=== PATIENT | male | born 1985 | race African-American/Black ===

== ENCOUNTER 2023-03-26 15:31 | Inpatient (IN) | payer OTHER ==
[2023-03-26 16:29] VITALS: BMI 29.3
[2023-03-26] MEDS ORDERED: TRIMETHOBENZAMIDE HCL 200MG/2ML INJ IM ONE (16:41)
[2023-03-26] MEDS ORDERED: BENZONATATE 200 MG CAPSULE PO PRN (17:07)
[2023-03-26] MEDS ORDERED: ACETAMINOPHEN 325 MG TABLET (FP) PO PRN (17:07)
[2023-03-26] MEDS ORDERED: guaiFENesin 600 MG TABLET.ER (FP) PO PRN (17:07)
[2023-03-26] MEDS ORDERED: MAGNESIUM HYDROX 2400MG/30ML ORAL SUSPENSION 30 ML CUP PO PRN (17:07)
[2023-03-26] MEDS ORDERED: DICYCLOMINE HCL 10 MG CAPSULE PO PRN (17:07)
[2023-03-26] MEDS ORDERED: BENZOCAINE/MENTHOL (CHLORASEPTIC ) LOZENGE MM PRN (17:07)
[2023-03-26] MEDS ORDERED: ONDANSETRON *ODT* 4 MG TABLET SL PRN (17:07)
[2023-03-26] MEDS ORDERED: P-EPHED 60MG/TRIPROLIDI 2.5MG TABLET PO PRN (17:07)
[2023-03-26] MEDS ORDERED: POLYETHYLENE GLYCOL (HEALTHYLAX) 3350 17 GM PACKET PO PRN (17:07)
[2023-03-26] MEDS ORDERED: LOPERAMIDE HCL 2 MG CAPSULE PO PRN (17:07)
[2023-03-26] MEDS ORDERED: MAG HYDROX/AL HYDROX/SIMETH 30 ML UNIT-DOSE CUP PO PRN (17:07)
[2023-03-26] MEDS ORDERED: chlordiazePOXIDE HCL 25 MG CAPSULE PO PRN (17:09)
[2023-03-26] MEDS ORDERED: chlordiazePOXIDE HCL 25 MG CAPSULE ONE (17:36)
[2023-03-26] MEDS: chlordiazePOXIDE HCL 25 MG CAPSULE PO SCH ×2 (17:39→22:27)
[2023-03-26] MEDS ORDERED: levETIRAcetam 500 MG TABLET (FP) PO ONE (17:41)
[2023-03-26] MEDS: levETIRAcetam 500 MG TABLET (FP) PO SCH ×2 (17:42→22:28)
[2023-03-26] MEDS: MELATONIN 5 MG TABLETS PO SCH (22:26)
[2023-03-26] MEDS: THIAMINE HCL 100 MG TABLET (FP) PO SCH (22:26)
[2023-03-27] MEDS: chlordiazePOXIDE HCL 25 MG CAPSULE PO SCH ×2 (05:46→10:09)
[2023-03-27] MEDS: levETIRAcetam 500 MG TABLET (FP) PO SCH ×2 (10:08→22:10)
[2023-03-27] MEDS: PRENATAL VITAMINS W/ FOLIC ACID TABLET (FP) PO SCH (10:09)
[2023-03-27 10:39] LABS: HEMATOCRIT 41.1 % (35.4-49); HEMOGLOBIN 13.8 GM/dL (11.7-16.9); MCH 33.9 pg (25.7-33.7); MCHC 33.7 g/dl (32.0-35.9); MEAN CELL VOLUME 100.7 fl (80-96); MEAN PLT VOLUME 9.9 fl (7.5-11.1); PLATELET COUNT 133 10^3/uL (134-434); RBC 4.08 M/mm3 (4.00-5.60); RDW 19.1 % (11.9-15.9); WHITE BLOOD COUNT 2.9 K/mm3 (4.0-10.0)
[2023-03-27 10:46] LABS: POTASSIUM 3.2 mmol/L (3.5-5.1)
[2023-03-27 10:54] LABS: BLOOD UREA NITROGEN 5.8 mg/dL (7-18); CALCIUM 9.6 mg/dL (8.5-10.1)
[2023-03-27 10:58] LABS: BILIRUBIN,TOTAL 1.6 mg/dL (0.2-1)
[2023-03-27 10:59] LABS: TOT PROT 7.2 g/dl (6.4-8.2)
[2023-03-27] MEDS ORDERED: POTASSIUM CHLORIDE ORAL LIQUID 20 MEQ/15 ML PO ONE ×3 (12:41→20:30)
[2023-03-27] MEDS ORDERED: LORazepam 1 MG TABLET PO PRN (12:43)
[2023-03-27] MEDS: LORazepam 2 MG TABLET PO SCH ×2 (17:28→22:10)
[2023-03-27] MEDS: APIXABAN 5 MG TABLET PO SCH (22:10)
[2023-03-27] MEDS: THIAMINE HCL 100 MG TABLET (FP) PO SCH (22:10)
[2023-03-27] MEDS: MELATONIN 5 MG TABLETS PO SCH (22:11)
[2023-03-28] MEDS ORDERED: chlordiazePOXIDE HCL 25 MG CAPSULE PO SCH (05:00)
[2023-03-28] MEDS: LORazepam 1 MG TABLET PO SCH ×4 (05:10→22:08)
[2023-03-28] MEDS: levETIRAcetam 500 MG TABLET (FP) PO SCH ×2 (10:14→22:08)
[2023-03-28] MEDS: APIXABAN 5 MG TABLET PO SCH ×2 (10:14→22:08)
[2023-03-28] MEDS: PRENATAL VITAMINS W/ FOLIC ACID TABLET (FP) PO SCH (10:20)
[2023-03-28] MEDS: POTASSIUM CHLORIDE ORAL LIQUID 20 MEQ/15 ML PO SCH ×2 (13:52→20:07)
[2023-03-28] MEDS: MELATONIN 5 MG TABLETS PO SCH (22:08)
[2023-03-28] MEDS: THIAMINE HCL 100 MG TABLET (FP) PO SCH (22:08)
[2023-03-29] MEDS ORDERED: LORazepam 0.5 MG TABLET PO PRN
[2023-03-29] MEDS ORDERED: chlordiazePOXIDE HCL 10 MG CAPSULE PO PRN
[2023-03-29] MEDS ORDERED: chlordiazePOXIDE HCL 10 MG CAPSULE PO SCH (05:00)
[2023-03-29] MEDS: LORazepam 0.5 MG TABLET PO SCH ×4 (05:21→22:03)
[2023-03-29] MEDS: hydrOXYzine PAMOATE 25 MG CAPSULE (FP) PO PRN (05:22)
[2023-03-29] MEDS: PRENATAL VITAMINS W/ FOLIC ACID TABLET (FP) PO SCH (10:54)
[2023-03-29] MEDS: levETIRAcetam 500 MG TABLET (FP) PO SCH ×2 (10:54→22:03)
[2023-03-29] MEDS: APIXABAN 5 MG TABLET PO SCH ×2 (10:54→22:03)
[2023-03-29] MEDS: MELATONIN 5 MG TABLETS PO SCH (22:03)
[2023-03-29] MEDS: THIAMINE HCL 100 MG TABLET (FP) PO SCH (22:03)
[2023-03-30] MEDS ORDERED: chlordiazePOXIDE HCL 10 MG CAPSULE PO SCH (05:00)
[2023-03-30] MEDS ORDERED: LORazepam 0.5 MG TABLET PO ONE (05:00)
[2023-03-30] MEDS: APIXABAN 5 MG TABLET PO SCH ×2 (10:06→22:12)
[2023-03-30] MEDS: PRENATAL VITAMINS W/ FOLIC ACID TABLET (FP) PO SCH (10:06)
[2023-03-30] MEDS: THIAMINE HCL 100 MG TABLET (FP) PO SCH (22:12)
[2023-03-30] MEDS: MELATONIN 5 MG TABLETS PO SCH (22:13)
[2023-03-30] MEDS: hydrOXYzine PAMOATE 25 MG CAPSULE (FP) PO PRN (22:14)
[2023-03-31] MEDS ORDERED: chlordiazePOXIDE HCL 10 MG CAPSULE PO ONE (05:00)
[2023-03-31 05:33] VITALS: RESP 18
[2023-03-31 09:27] VITALS: BP 144/88; PULSE 76; TEMP 98.3
[2023-03-31] MEDS: PRENATAL VITAMINS W/ FOLIC ACID TABLET (FP) PO SCH (09:33)
[2023-03-31] MEDS: APIXABAN 5 MG TABLET PO SCH (09:34)
== END 2023-03-31 09:52 | disposition home or self-care (01) | DRG 775 ==
LOC: YASAS 15:31 → Y6N 17:13
PROVIDERS: ADMIT Allergy & Immunology; ATTEND Surgery
PROC: HZ2ZZZZ Detoxification Services for Substance Abuse Treatment (ICD-10-PCS; principal; 2023-03-26)
DX: F10.230 Alcohol dependence with withdrawal, uncomplicated (principal); E87.6 Hypokalemia; H11.31 Conjunctival hemorrhage, right eye; R74.8 Abnormal levels of other serum enzymes; Z86.711 Personal history of pulmonary embolism; Z79.01 Long term (current) use of anticoagulants; Z86.69 Personal history of other diseases of the nervous system and sense organs
CPT/HCPCS: 36415; 80053; 84132; 85027; 86780; 87635; Q0162

== ENCOUNTER 2023-05-11 11:31 | Inpatient (IN) | payer OTHER ==
[2023-05-11] MEDS ORDERED: IBUPROFEN 600 MG TABLET (FP) PO PRN (12:06)
[2023-05-11] MEDS ORDERED: LOPERAMIDE HCL 2 MG CAPSULE PO PRN (12:06)
[2023-05-11] MEDS ORDERED: MAGNESIUM HYDROX 2400MG/30ML ORAL SUSPENSION 30 ML CUP PO PRN (12:06)
[2023-05-11] MEDS ORDERED: AMMONIUM LACTATE 12% LOTION 225 GM BOTTLE TP PRN (12:06)
[2023-05-11] MEDS ORDERED: BENZONATATE 200 MG CAPSULE PO PRN (12:06)
[2023-05-11] MEDS ORDERED: MAG HYDROX/AL HYDROX/SIMETH 30 ML UNIT-DOSE CUP PO PRN (12:06)
[2023-05-11] MEDS ORDERED: ACETAMINOPHEN 325 MG TABLET (FP) PO PRN (12:06)
[2023-05-11] MEDS ORDERED: BENZOCAINE/MENTHOL (CHLORASEPTIC ) LOZENGE MM PRN (12:06)
[2023-05-11] MEDS ORDERED: IBUPROFEN 400 MG TABLET (FP) PO PRN (12:06)
[2023-05-11] MEDS ORDERED: NALOXONE HCL 0.4 MG/ML VIAL IVPUSH PRN (12:06)
[2023-05-11] MEDS ORDERED: guaiFENesin 600 MG TABLET.ER (FP) PO PRN (12:06)
[2023-05-11] MEDS ORDERED: POLYETHYLENE GLYCOL (HEALTHYLAX) 3350 17 GM PACKET PO PRN (12:06)
[2023-05-11] MEDS ORDERED: NALOXONE HCL (KLOXXADO) 8 MG SPRAY NS PRN (12:06)
[2023-05-11] MEDS ORDERED: COLLOIDAL OATMEAL 1 BAR EACH TP PRN (12:06)
[2023-05-11] MEDS: THIAMINE HCL 100 MG TABLET (FP) PO SCH (21:23)
[2023-05-11] MEDS: MELATONIN 5 MG TABLETS PO SCH (21:24)
[2023-05-11] MEDS: APIXABAN 5 MG TABLET PO SCH (21:24)
[2023-05-12] MEDS: PRENATAL VITAMINS W/ FOLIC ACID TABLET (FP) PO SCH (10:16)
[2023-05-12] MEDS: levETIRAcetam XR 750 MG TAB PO SCH (10:16)
[2023-05-12] MEDS: APIXABAN 5 MG TABLET PO SCH ×2 (10:16→21:36)
[2023-05-12 10:39] LABS: BASO % 0.7 % (0-2.0); EOS % 3.6 % (0-4.5); HEMOGLOBIN 13.7 GM/dL (11.7-16.9); LYMPH % 27.8 % (8-40); MCH 34.6 pg (25.7-33.7); MCHC 33.4 g/dl (32.0-35.9); MEAN CELL VOLUME 103.8 fl (80-96); MONO % 18.2 % (3.8-10.2); NEUT % 49.7 % (42.8-82.8); PLATELET COUNT 167 10^3/uL (134-434); RBC 3.95 M/mm3 (4.00-5.60); RDW 15.9 % (11.9-15.9); WHITE BLOOD COUNT 3.4 K/mm3 (4.0-10.0)
[2023-05-12 12:56] LABS: POTASSIUM 3.9 mmol/L (3.5-5.1)
[2023-05-12 13:14] LABS: BLOOD UREA NITROGEN 5.9 mg/dL (7-18); CALCIUM 9.3 mg/dL (8.5-10.1); CREATININE 1.1 mg/dL (0.55-1.3); TOT PROT 7.3 g/dl (6.4-8.2)
[2023-05-12] MEDS: THIAMINE HCL 100 MG TABLET (FP) PO SCH (21:36)
[2023-05-12] MEDS: MELATONIN 5 MG TABLETS PO SCH (21:36)
[2023-05-12] MEDS: METHOCARBAMOL 500 MG TABLET PO PRN (21:37)
[2023-05-12] MEDS: hydrOXYzine PAMOATE 25 MG CAPSULE (FP) PO PRN (21:37)
[2023-05-13] MEDS: APIXABAN 5 MG TABLET PO SCH ×2 (10:04→21:27)
[2023-05-13] MEDS: levETIRAcetam XR 750 MG TAB PO SCH (10:04)
[2023-05-13] MEDS: PRENATAL VITAMINS W/ FOLIC ACID TABLET (FP) PO SCH (10:05)
[2023-05-13] MEDS ORDERED: PANTOPRAZOLE 20 MG TABLET PO PRN (11:16)
[2023-05-13] MEDS: LACTULOSE 20 GM/30 ML UDC (FOR ORAL USE ONLY) PO SCH ×2 (13:19→21:27)
[2023-05-13] MEDS: THIAMINE HCL 100 MG TABLET (FP) PO SCH (21:27)
[2023-05-13] MEDS: METHOCARBAMOL 500 MG TABLET PO PRN (21:27)
[2023-05-13] MEDS: MELATONIN 5 MG TABLETS PO SCH (21:27)
[2023-05-14] MEDS: LACTULOSE 20 GM/30 ML UDC (FOR ORAL USE ONLY) PO SCH ×3 (06:27→21:30)
[2023-05-14] MEDS: APIXABAN 5 MG TABLET PO SCH ×2 (09:46→21:31)
[2023-05-14] MEDS: PRENATAL VITAMINS W/ FOLIC ACID TABLET (FP) PO SCH (09:46)
[2023-05-14] MEDS: levETIRAcetam XR 750 MG TAB PO SCH (09:46)
[2023-05-14] MEDS: FERROUS SO4 300 MG/5 ML ORAL SOLN UNIT DOSE CUPS PO SCH (09:46)
[2023-05-14 11:17] LABS: INR 1.15 (0.83-1.09); PROTHROMBIN TIME (PATIENT) 13.3 SEC (9.7-13.0)
[2023-05-14 11:58] LABS: MAGNESIUM 2.2 mg/dL (1.8-2.4)
[2023-05-14 12:16] LABS: HIV INTERPRETATION NEGATIVE (NEGATIVE)
[2023-05-14] MEDS: THIAMINE HCL 100 MG TABLET (FP) PO SCH (21:29)
[2023-05-14] MEDS: MELATONIN 5 MG TABLETS PO SCH (21:29)
[2023-05-14] MEDS: hydrOXYzine PAMOATE 25 MG CAPSULE (FP) PO PRN (21:30)
[2023-05-14] MEDS: METHOCARBAMOL 500 MG TABLET PO PRN (21:30)
[2023-05-15] MEDS: LACTULOSE 20 GM/30 ML UDC (FOR ORAL USE ONLY) PO SCH ×3 (06:36→21:33)
[2023-05-15] MEDS: APIXABAN 5 MG TABLET PO SCH ×2 (10:05→21:34)
[2023-05-15] MEDS: PRENATAL VITAMINS W/ FOLIC ACID TABLET (FP) PO SCH (10:05)
[2023-05-15] MEDS: levETIRAcetam XR 750 MG TAB PO SCH (10:06)
[2023-05-15] MEDS: FERROUS SO4 300 MG/5 ML ORAL SOLN UNIT DOSE CUPS PO SCH (10:06)
[2023-05-15] MEDS: MELATONIN 5 MG TABLETS PO SCH (21:33)
[2023-05-15] MEDS: THIAMINE HCL 100 MG TABLET (FP) PO SCH (21:33)
[2023-05-15] MEDS: METHOCARBAMOL 500 MG TABLET PO PRN (21:34)
[2023-05-16] MEDS: LACTULOSE 20 GM/30 ML UDC (FOR ORAL USE ONLY) PO SCH ×3 (06:18→21:27)
[2023-05-16] MEDS: PRENATAL VITAMINS W/ FOLIC ACID TABLET (FP) PO SCH (09:36)
[2023-05-16] MEDS: APIXABAN 5 MG TABLET PO SCH ×2 (09:37→21:27)
[2023-05-16] MEDS: levETIRAcetam XR 750 MG TAB PO SCH (09:37)
[2023-05-16] MEDS: FERROUS SO4 300 MG/5 ML ORAL SOLN UNIT DOSE CUPS PO SCH (10:22)
[2023-05-16] MEDS: MELATONIN 5 MG TABLETS PO SCH (21:26)
[2023-05-16] MEDS: THIAMINE HCL 100 MG TABLET (FP) PO SCH (21:26)
[2023-05-16] MEDS: METHOCARBAMOL 500 MG TABLET PO PRN (21:27)
[2023-05-17] MEDS: LACTULOSE 20 GM/30 ML UDC (FOR ORAL USE ONLY) PO SCH ×3 (06:16→21:40)
[2023-05-17] MEDS: APIXABAN 5 MG TABLET PO SCH ×2 (10:02→21:40)
[2023-05-17] MEDS: FERROUS SO4 300 MG/5 ML ORAL SOLN UNIT DOSE CUPS PO SCH (10:02)
[2023-05-17] MEDS: levETIRAcetam XR 750 MG TAB PO SCH (10:02)
[2023-05-17] MEDS: PRENATAL VITAMINS W/ FOLIC ACID TABLET (FP) PO SCH (10:03)
[2023-05-17] MEDS: MELATONIN 5 MG TABLETS PO SCH (21:40)
[2023-05-17] MEDS: hydrOXYzine PAMOATE 25 MG CAPSULE (FP) PO PRN (21:40)
[2023-05-17] MEDS: THIAMINE HCL 100 MG TABLET (FP) PO SCH (21:40)
[2023-05-18] MEDS: LACTULOSE 20 GM/30 ML UDC (FOR ORAL USE ONLY) PO SCH ×3 (06:19→21:46)
[2023-05-18] MEDS: levETIRAcetam XR 750 MG TAB PO SCH (09:35)
[2023-05-18] MEDS: FERROUS SO4 300 MG/5 ML ORAL SOLN UNIT DOSE CUPS PO SCH (09:35)
[2023-05-18] MEDS: APIXABAN 5 MG TABLET PO SCH ×2 (09:35→21:46)
[2023-05-18] MEDS: PRENATAL VITAMINS W/ FOLIC ACID TABLET (FP) PO SCH (09:35)
[2023-05-18] MEDS: THIAMINE HCL 100 MG TABLET (FP) PO SCH (21:46)
[2023-05-18] MEDS: MELATONIN 5 MG TABLETS PO SCH (21:47)
[2023-05-19] MEDS: LACTULOSE 20 GM/30 ML UDC (FOR ORAL USE ONLY) PO SCH ×3 (06:13→21:52)
[2023-05-19] MEDS: PRENATAL VITAMINS W/ FOLIC ACID TABLET (FP) PO SCH (09:56)
[2023-05-19] MEDS: FERROUS SO4 300 MG/5 ML ORAL SOLN UNIT DOSE CUPS PO SCH (09:56)
[2023-05-19] MEDS: APIXABAN 5 MG TABLET PO SCH ×2 (09:56→21:52)
[2023-05-19] MEDS: levETIRAcetam XR 750 MG TAB PO SCH (09:56)
[2023-05-19] MEDS: THIAMINE HCL 100 MG TABLET (FP) PO SCH (21:52)
[2023-05-19] MEDS: MELATONIN 5 MG TABLETS PO SCH (21:52)
[2023-05-20] MEDS: LACTULOSE 20 GM/30 ML UDC (FOR ORAL USE ONLY) PO SCH ×2 (06:25→14:04)
[2023-05-20] MEDS: APIXABAN 5 MG TABLET PO SCH ×2 (09:34→21:15)
[2023-05-20] MEDS: FERROUS SO4 300 MG/5 ML ORAL SOLN UNIT DOSE CUPS PO SCH (09:34)
[2023-05-20] MEDS: PRENATAL VITAMINS W/ FOLIC ACID TABLET (FP) PO SCH (09:35)
[2023-05-20] MEDS: levETIRAcetam XR 750 MG TAB PO SCH (09:35)
[2023-05-20 10:48] LABS: POTASSIUM 4.4 mmol/L (3.5-5.1)
[2023-05-20 10:52] LABS: CALCIUM 9.2 mg/dL (8.5-10.1)
[2023-05-20 10:53] LABS: ALBUMIN 3.9 g/dl (3.4-5.0); BLOOD UREA NITROGEN 6.8 mg/dL (7-18)
[2023-05-20 10:57] LABS: TOT PROT 7.4 g/dl (6.4-8.2)
[2023-05-20 10:58] LABS: BILIRUBIN,TOTAL 0.5 mg/dL (0.2-1)
[2023-05-20] MEDS: THIAMINE HCL 100 MG TABLET (FP) PO SCH (21:15)
[2023-05-20] MEDS: MELATONIN 5 MG TABLETS PO SCH (21:15)
[2023-05-21] MEDS: FERROUS SO4 300 MG/5 ML ORAL SOLN UNIT DOSE CUPS PO SCH (10:13)
[2023-05-21] MEDS: APIXABAN 5 MG TABLET PO SCH ×2 (10:13→21:17)
[2023-05-21] MEDS: levETIRAcetam XR 750 MG TAB PO SCH (10:13)
[2023-05-21] MEDS: PRENATAL VITAMINS W/ FOLIC ACID TABLET (FP) PO SCH (10:14)
[2023-05-21] MEDS: THIAMINE HCL 100 MG TABLET (FP) PO SCH (21:18)
[2023-05-21] MEDS: MELATONIN 5 MG TABLETS PO SCH (21:18)
[2023-05-22] MEDS: APIXABAN 5 MG TABLET PO SCH ×2 (09:26→21:33)
[2023-05-22] MEDS: levETIRAcetam XR 750 MG TAB PO SCH (09:27)
[2023-05-22] MEDS: FERROUS SO4 300 MG/5 ML ORAL SOLN UNIT DOSE CUPS PO SCH (09:27)
[2023-05-22] MEDS: PRENATAL VITAMINS W/ FOLIC ACID TABLET (FP) PO SCH (09:27)
[2023-05-22] MEDS: MELATONIN 5 MG TABLETS PO SCH (21:32)
[2023-05-22] MEDS: THIAMINE HCL 100 MG TABLET (FP) PO SCH (21:33)
[2023-05-23] MEDS: PRENATAL VITAMINS W/ FOLIC ACID TABLET (FP) PO SCH (09:52)
[2023-05-23] MEDS: levETIRAcetam XR 750 MG TAB PO SCH (09:52)
[2023-05-23] MEDS: FERROUS SO4 300 MG/5 ML ORAL SOLN UNIT DOSE CUPS PO SCH (09:52)
[2023-05-23] MEDS: APIXABAN 5 MG TABLET PO SCH ×2 (09:52→21:39)
[2023-05-23] MEDS: MELATONIN 5 MG TABLETS PO SCH (21:39)
[2023-05-23] MEDS: THIAMINE HCL 100 MG TABLET (FP) PO SCH (21:39)
[2023-05-24] MEDS: APIXABAN 5 MG TABLET PO SCH ×2 (09:36→21:37)
[2023-05-24] MEDS: PRENATAL VITAMINS W/ FOLIC ACID TABLET (FP) PO SCH (09:36)
[2023-05-24] MEDS: FERROUS SO4 300 MG/5 ML ORAL SOLN UNIT DOSE CUPS PO SCH (09:37)
[2023-05-24] MEDS: levETIRAcetam XR 750 MG TAB PO SCH (09:37)
[2023-05-24] MEDS: MELATONIN 5 MG TABLETS PO SCH (21:37)
[2023-05-24] MEDS: THIAMINE HCL 100 MG TABLET (FP) PO SCH (21:37)
[2023-05-25] MEDS: hydrOXYzine PAMOATE 25 MG CAPSULE (FP) PO PRN (06:14)
[2023-05-25] MEDS: FERROUS SO4 300 MG/5 ML ORAL SOLN UNIT DOSE CUPS PO SCH (10:16)
[2023-05-25] MEDS: APIXABAN 5 MG TABLET PO SCH ×2 (10:16→21:14)
[2023-05-25] MEDS: levETIRAcetam XR 750 MG TAB PO SCH (10:17)
[2023-05-25] MEDS: PRENATAL VITAMINS W/ FOLIC ACID TABLET (FP) PO SCH (10:17)
[2023-05-25] MEDS: MELATONIN 5 MG TABLETS PO SCH (21:14)
[2023-05-25] MEDS: THIAMINE HCL 100 MG TABLET (FP) PO SCH (21:14)
[2023-05-26] MEDS: APIXABAN 5 MG TABLET PO SCH ×2 (09:44→22:18)
[2023-05-26] MEDS: FERROUS SO4 300 MG/5 ML ORAL SOLN UNIT DOSE CUPS PO SCH (09:44)
[2023-05-26] MEDS: levETIRAcetam XR 750 MG TAB PO SCH (09:45)
[2023-05-26] MEDS: PRENATAL VITAMINS W/ FOLIC ACID TABLET (FP) PO SCH (09:45)
[2023-05-26] MEDS: MELATONIN 5 MG TABLETS PO SCH (22:18)
[2023-05-26] MEDS: THIAMINE HCL 100 MG TABLET (FP) PO SCH (22:18)
[2023-05-27] MEDS: PRENATAL VITAMINS W/ FOLIC ACID TABLET (FP) PO SCH (09:36)
[2023-05-27] MEDS: FERROUS SO4 300 MG/5 ML ORAL SOLN UNIT DOSE CUPS PO SCH (09:36)
[2023-05-27] MEDS: APIXABAN 5 MG TABLET PO SCH ×2 (09:36→21:24)
[2023-05-27] MEDS: levETIRAcetam XR 750 MG TAB PO SCH (09:37)
[2023-05-27] MEDS: THIAMINE HCL 100 MG TABLET (FP) PO SCH (21:23)
[2023-05-27] MEDS: MELATONIN 5 MG TABLETS PO SCH (21:24)
[2023-05-28] MEDS: FERROUS SO4 300 MG/5 ML ORAL SOLN UNIT DOSE CUPS PO SCH (09:37)
[2023-05-28] MEDS: PRENATAL VITAMINS W/ FOLIC ACID TABLET (FP) PO SCH (09:37)
[2023-05-28] MEDS: levETIRAcetam XR 750 MG TAB PO SCH (09:37)
[2023-05-28] MEDS: APIXABAN 5 MG TABLET PO SCH ×2 (09:37→21:27)
[2023-05-28] MEDS: THIAMINE HCL 100 MG TABLET (FP) PO SCH (21:27)
[2023-05-28] MEDS: MELATONIN 5 MG TABLETS PO SCH (21:27)
[2023-05-29] MEDS: levETIRAcetam XR 750 MG TAB PO SCH (10:10)
[2023-05-29] MEDS: PRENATAL VITAMINS W/ FOLIC ACID TABLET (FP) PO SCH (10:10)
[2023-05-29] MEDS: APIXABAN 5 MG TABLET PO SCH ×2 (10:10→21:15)
[2023-05-29] MEDS: FERROUS SO4 300 MG/5 ML ORAL SOLN UNIT DOSE CUPS PO SCH (10:11)
[2023-05-29] MEDS: MELATONIN 5 MG TABLETS PO SCH (21:15)
[2023-05-29] MEDS: THIAMINE HCL 100 MG TABLET (FP) PO SCH (21:15)
[2023-05-30] MEDS: PRENATAL VITAMINS W/ FOLIC ACID TABLET (FP) PO SCH (09:38)
[2023-05-30] MEDS: APIXABAN 5 MG TABLET PO SCH ×2 (09:38→21:12)
[2023-05-30] MEDS: levETIRAcetam XR 750 MG TAB PO SCH (09:38)
[2023-05-30] MEDS: FERROUS SO4 300 MG/5 ML ORAL SOLN UNIT DOSE CUPS PO SCH (09:38)
[2023-05-30] MEDS: MELATONIN 5 MG TABLETS PO SCH (21:12)
[2023-05-30] MEDS: THIAMINE HCL 100 MG TABLET (FP) PO SCH (21:12)
[2023-05-31] MEDS: FERROUS SO4 300 MG/5 ML ORAL SOLN UNIT DOSE CUPS PO SCH (10:01)
[2023-05-31] MEDS: PRENATAL VITAMINS W/ FOLIC ACID TABLET (FP) PO SCH (10:01)
[2023-05-31] MEDS: APIXABAN 5 MG TABLET PO SCH ×2 (10:01→21:16)
[2023-05-31] MEDS: levETIRAcetam XR 750 MG TAB PO SCH (10:01)
[2023-05-31] MEDS: hydrOXYzine PAMOATE 25 MG CAPSULE (FP) PO PRN (21:16)
[2023-05-31] MEDS: THIAMINE HCL 100 MG TABLET (FP) PO SCH (21:16)
[2023-05-31] MEDS: MELATONIN 5 MG TABLETS PO SCH (21:16)
[2023-06-01] MEDS: APIXABAN 5 MG TABLET PO SCH ×2 (09:55→21:15)
[2023-06-01] MEDS: levETIRAcetam XR 750 MG TAB PO SCH (09:55)
[2023-06-01] MEDS: PRENATAL VITAMINS W/ FOLIC ACID TABLET (FP) PO SCH (09:56)
[2023-06-01] MEDS: FERROUS SO4 300 MG/5 ML ORAL SOLN UNIT DOSE CUPS PO SCH (11:03)
[2023-06-01] MEDS: THIAMINE HCL 100 MG TABLET (FP) PO SCH (21:15)
[2023-06-01] MEDS: MELATONIN 5 MG TABLETS PO SCH (21:15)
[2023-06-02] MEDS: APIXABAN 5 MG TABLET PO SCH ×2 (09:44→21:20)
[2023-06-02] MEDS: FERROUS SO4 300 MG/5 ML ORAL SOLN UNIT DOSE CUPS PO SCH (09:45)
[2023-06-02] MEDS: PRENATAL VITAMINS W/ FOLIC ACID TABLET (FP) PO SCH (09:45)
[2023-06-02] MEDS: levETIRAcetam XR 750 MG TAB PO SCH (09:45)
[2023-06-02] MEDS: THIAMINE HCL 100 MG TABLET (FP) PO SCH (21:20)
[2023-06-02] MEDS: MELATONIN 5 MG TABLETS PO SCH (21:20)
[2023-06-03] MEDS: PRENATAL VITAMINS W/ FOLIC ACID TABLET (FP) PO SCH (10:00)
[2023-06-03] MEDS: APIXABAN 5 MG TABLET PO SCH ×2 (10:00→21:16)
[2023-06-03] MEDS: FERROUS SO4 300 MG/5 ML ORAL SOLN UNIT DOSE CUPS PO SCH (10:00)
[2023-06-03] MEDS: levETIRAcetam XR 750 MG TAB PO SCH (10:01)
[2023-06-03] MEDS: THIAMINE HCL 100 MG TABLET (FP) PO SCH (21:16)
[2023-06-03] MEDS: MELATONIN 5 MG TABLETS PO SCH (21:16)
[2023-06-03] MEDS: hydrOXYzine PAMOATE 25 MG CAPSULE (FP) PO PRN (21:17)
[2023-06-04] MEDS: levETIRAcetam XR 750 MG TAB PO SCH (09:56)
[2023-06-04] MEDS: PRENATAL VITAMINS W/ FOLIC ACID TABLET (FP) PO SCH (09:56)
[2023-06-04] MEDS: FERROUS SO4 300 MG/5 ML ORAL SOLN UNIT DOSE CUPS PO SCH (09:56)
[2023-06-04] MEDS: APIXABAN 5 MG TABLET PO SCH ×2 (09:56→21:12)
[2023-06-04] MEDS ORDERED: LISINOPRIL 5 MG TABLET PO ONE (09:58)
[2023-06-04] MEDS: hydrOXYzine PAMOATE 25 MG CAPSULE (FP) PO PRN (21:12)
[2023-06-04] MEDS: THIAMINE HCL 100 MG TABLET (FP) PO SCH (21:13)
[2023-06-04] MEDS: MELATONIN 5 MG TABLETS PO SCH (21:13)
[2023-06-05] MEDS: APIXABAN 5 MG TABLET PO SCH ×2 (09:57→21:10)
[2023-06-05] MEDS: PRENATAL VITAMINS W/ FOLIC ACID TABLET (FP) PO SCH (09:58)
[2023-06-05] MEDS: LISINOPRIL 5 MG TABLET PO SCH (09:58)
[2023-06-05] MEDS: levETIRAcetam XR 750 MG TAB PO SCH (09:58)
[2023-06-05] MEDS: FERROUS SO4 300 MG/5 ML ORAL SOLN UNIT DOSE CUPS PO SCH (09:58)
[2023-06-05] MEDS: THIAMINE HCL 100 MG TABLET (FP) PO SCH (21:10)
[2023-06-05] MEDS: MELATONIN 5 MG TABLETS PO SCH (21:10)
[2023-06-06] MEDS: FERROUS SO4 300 MG/5 ML ORAL SOLN UNIT DOSE CUPS PO SCH (10:37)
[2023-06-06] MEDS: APIXABAN 5 MG TABLET PO SCH ×2 (10:37→21:22)
[2023-06-06] MEDS: LISINOPRIL 5 MG TABLET PO SCH (10:38)
[2023-06-06] MEDS: levETIRAcetam XR 750 MG TAB PO SCH (10:39)
[2023-06-06] MEDS: PRENATAL VITAMINS W/ FOLIC ACID TABLET (FP) PO SCH (10:40)
[2023-06-06] MEDS: MELATONIN 5 MG TABLETS PO SCH (21:22)
[2023-06-06] MEDS: THIAMINE HCL 100 MG TABLET (FP) PO SCH (21:22)
[2023-06-07 06:38] VITALS: BP 143/98; PULSE 79; RESP 16; TEMP 98
[2023-06-07] MEDS: LISINOPRIL 5 MG TABLET PO SCH (09:25)
[2023-06-07] MEDS: APIXABAN 5 MG TABLET PO SCH (09:25)
[2023-06-07] MEDS: FERROUS SO4 300 MG/5 ML ORAL SOLN UNIT DOSE CUPS PO SCH (09:26)
[2023-06-07] MEDS: PRENATAL VITAMINS W/ FOLIC ACID TABLET (FP) PO SCH (09:26)
[2023-06-07] MEDS: levETIRAcetam XR 750 MG TAB PO SCH (09:26)
== END 2023-06-07 09:30 | disposition home or self-care (01) | DRG 772 ==
LOC: YASAS 11:31 → Y3E 11:32
PROVIDERS: ADMIT Allergy & Immunology; ATTEND Psychiatry & Neurology Pain Medicine
PROC: HZ42ZZZ Group Counseling for Substance Abuse Treatment, Cognitive-Behavioral (ICD-10-PCS; principal; 2023-05-11)
DX: F10.20 Alcohol dependence, uncomplicated (principal); E72.20 Disorder of urea cycle metabolism, unspecified; I10 Essential (primary) hypertension; D68.59 Other primary thrombophilia; R79.89 Other specified abnormal findings of blood chemistry; D72.819 Decreased white blood cell count, unspecified; R71.8 Other abnormality of red blood cells; Z86.711 Personal history of pulmonary embolism; Z79.01 Long term (current) use of anticoagulants; Z86.69 Personal history of other diseases of the nervous system and sense organs
CPT/HCPCS: 36415; 80053; 80177; 82140; 82272; 82607; 82652; 82746; 83036; 83735; 84439; 84443; 84481; 85025; 85610; 86803; 87389

== ENCOUNTER 2024-01-12 13:28 | Inpatient (IN) | payer OTHER ==
[2024-01-12 13:55] VITALS: BMI 32.5
[2024-01-12] MEDS ORDERED: MAGNESIUM HYDROX 2400MG/30ML ORAL SUSPENSION 30 ML CUP PO PRN (14:02)
[2024-01-12] MEDS ORDERED: LOPERAMIDE HCL 2 MG CAPSULE PO PRN (14:02)
[2024-01-12] MEDS ORDERED: P-EPHED 60MG/TRIPROLIDI 2.5MG TABLET PO PRN (14:02)
[2024-01-12] MEDS ORDERED: chlordiazePOXIDE HCL 25 MG CAPSULE PO PRN (14:02)
[2024-01-12] MEDS ORDERED: ONDANSETRON *ODT* 4 MG TABLET SL PRN (14:02)
[2024-01-12] MEDS ORDERED: MAG HYDROX/AL HYDROX/SIMETH 30 ML UNIT-DOSE CUP PO PRN (14:02)
[2024-01-12] MEDS ORDERED: POLYETHYLENE GLYCOL (HEALTHYLAX) 3350 17 GM PACKET PO PRN (14:02)
[2024-01-12] MEDS ORDERED: hydrOXYzine PAMOATE 25 MG CAPSULE (FP) PO PRN (14:02)
[2024-01-12] MEDS ORDERED: BENZONATATE 200 MG CAPSULE PO PRN (14:02)
[2024-01-12] MEDS ORDERED: DICYCLOMINE HCL 10 MG CAPSULE PO PRN (14:02)
[2024-01-12] MEDS ORDERED: guaiFENesin 600 MG TABLET.ER (FP) PO PRN (14:02)
[2024-01-12] MEDS ORDERED: ACETAMINOPHEN 325 MG TABLET (FP) PO PRN (14:02)
[2024-01-12] MEDS ORDERED: BENZOCAINE/MENTHOL (CHLORASEPTIC ) LOZENGE MM PRN (14:02)
[2024-01-12] MEDS ORDERED: levETIRAcetam 500 MG TABLET (FP) PO ONE (14:26)
[2024-01-12] MEDS: LISINOPRIL 5 MG TABLET PO SCH (14:51)
[2024-01-12] MEDS: levETIRAcetam XR 750 MG TAB PO SCH (14:51)
[2024-01-12] MEDS: chlordiazePOXIDE HCL 25 MG CAPSULE PO SCH (17:17)
[2024-01-12] MEDS: MELATONIN 5 MG TABLETS PO SCH (22:28)
[2024-01-12] MEDS: APIXABAN 5 MG TABLET PO SCH (22:29)
[2024-01-12] MEDS: BACITRACIN 0.9 GM PACKET TP SCH (22:29)
[2024-01-12] MEDS: THIAMINE 100 MG TABLET PO SCH (22:29)
[2024-01-13] MEDS: METHOCARBAMOL 500 MG TABLET PO PRN (05:42)
[2024-01-13] MEDS: PRENATAL VITAMINS W/ FOLIC ACID TABLET (FP) PO SCH (10:47)
[2024-01-14] MEDS: chlordiazePOXIDE HCL 25 MG CAPSULE PO SCH (05:45)
[2024-01-14 11:45] LABS: MCH 31.9 pg (25.7-33.7); MCHC 33.4 g/dl (32.0-35.9); MEAN CELL VOLUME 95.6 fl (80-96); PLATELET COUNT 207 10^3/uL (134-434); RBC 4.08 M/mm3 (4.00-5.60); RDW 13.6 % (11.9-15.9); WHITE BLOOD COUNT 3.9 K/mm3 (4.0-10.0)
[2024-01-14 11:46] LABS: POTASSIUM 3.8 mmol/L (3.5-5.1)
[2024-01-14 11:51] LABS: ALBUMIN 3.6 g/dl (3.4-5.0); BLOOD UREA NITROGEN 8.7 mg/dL (7-18); CALCIUM 8.9 mg/dL (8.5-10.1)
[2024-01-14 11:52] LABS: CREATININE 0.9 mg/dL (0.55-1.3)
[2024-01-14 11:54] LABS: BILIRUBIN,TOTAL 0.8 mg/dL (0.2-1); TOT PROT 6.9 g/dl (6.4-8.2)
[2024-01-15] MEDS ORDERED: chlordiazePOXIDE HCL 10 MG CAPSULE PO PRN
[2024-01-15] MEDS: chlordiazePOXIDE HCL 10 MG CAPSULE PO SCH (05:59)
[2024-01-16] MEDS: chlordiazePOXIDE HCL 10 MG CAPSULE PO SCH (05:49)
[2024-01-17] MEDS: chlordiazePOXIDE HCL 10 MG CAPSULE PO ONE (05:48)
[2024-01-17 07:51] VITALS: PULSE 75
[2024-01-17 09:13] VITALS: BP 109/74; RESP 19; TEMP 97.7
== END 2024-01-17 12:06 | disposition home or self-care (01) | DRG 775 ==
LOC: YASAS 13:28 → Y6N 14:24
PROVIDERS: ADMIT Allergy & Immunology; ATTEND Surgery
PROC: HZ2ZZZZ Detoxification Services for Substance Abuse Treatment (ICD-10-PCS; principal; 2024-01-12)
DX: F10.230 Alcohol dependence with withdrawal, uncomplicated (principal); I10 Essential (primary) hypertension; R56.9 Unspecified convulsions; R74.8 Abnormal levels of other serum enzymes; Z86.711 Personal history of pulmonary embolism; Z79.01 Long term (current) use of anticoagulants; Z86.69 Personal history of other diseases of the nervous system and sense organs
CPT/HCPCS: 36415; 80053; 85027; 86780; 93005; 93010

== ENCOUNTER 2024-01-22 22:46 | Inpatient (IN) | payer OTHER ==
[2024-01-23 00:22] VITALS: BMI 33.0
[2024-01-23] MEDS ORDERED: MAGNESIUM HYDROX 2400MG/30ML ORAL SUSPENSION 30 ML CUP PO PRN (03:57)
[2024-01-23] MEDS ORDERED: BENZONATATE 200 MG CAPSULE PO PRN (03:57)
[2024-01-23] MEDS ORDERED: LOPERAMIDE HCL 2 MG CAPSULE PO PRN (03:57)
[2024-01-23] MEDS ORDERED: MAG HYDROX/AL HYDROX/SIMETH 30 ML UNIT-DOSE CUP PO PRN (03:57)
[2024-01-23] MEDS ORDERED: IBUPROFEN 600 MG TABLET (FP) PO PRN (03:57)
[2024-01-23] MEDS ORDERED: IBUPROFEN 400 MG TABLET (FP) PO PRN (03:57)
[2024-01-23] MEDS ORDERED: guaiFENesin 600 MG TABLET.ER (FP) PO PRN (03:57)
[2024-01-23] MEDS ORDERED: NALOXONE HCL (KLOXXADO) 8 MG SPRAY NS PRN (03:57)
[2024-01-23] MEDS ORDERED: POLYETHYLENE GLYCOL (HEALTHYLAX) 3350 17 GM PACKET PO PRN (03:57)
[2024-01-23] MEDS ORDERED: hydrOXYzine PAMOATE 25 MG CAPSULE (FP) PO PRN (03:57)
[2024-01-23] MEDS ORDERED: NALOXONE HCL 0.4 MG/ML VIAL IM PRN (03:57)
[2024-01-23] MEDS: PRENATAL VITAMINS W/ FOLIC ACID TABLET (FP) PO SCH (10:43)
[2024-01-23] MEDS: APIXABAN 5 MG TABLET PO SCH (10:43)
[2024-01-23] MEDS: LISINOPRIL 5 MG TABLET PO SCH (10:43)
[2024-01-23] MEDS: levETIRAcetam XR 750 MG TAB PO SCH (10:55)
[2024-01-23] MEDS: MELATONIN 5 MG TABLETS PO SCH (21:24)
[2024-01-23] MEDS: THIAMINE 100 MG TABLET PO SCH (21:25)
[2024-01-24 09:20] LABS: HEMATOCRIT 37.4 % (35.4-49); HEMOGLOBIN 12.6 GM/dL (11.7-16.9); MCH 32.6 pg (25.7-33.7); MCHC 33.7 g/dl (32.0-35.9); MEAN CELL VOLUME 96.8 fl (80-96); MEAN PLT VOLUME 10.3 fl (7.5-11.1); PLATELET COUNT 285 10^3/uL (134-434); RBC 3.86 M/mm3 (4.00-5.60); RDW 14.1 % (11.9-15.9)
[2024-01-25 11:41] LABS: CHLORIDE 103 mmol/L (98-107); SODIUM 133 mmol/L (136-145)
[2024-01-25 11:46] LABS: CALCIUM 9.2 mg/dL (8.5-10.1)
[2024-01-25 11:47] LABS: ALBUMIN 3.4 g/dl (3.4-5.0); BLOOD UREA NITROGEN 6.6 mg/dL (7-18); CO2 26 mmol/L (21-32); GLUCOSE,RANDOM 91 mg/dL (74-106)
[2024-01-25 11:49] LABS: CREATININE 0.9 mg/dL (0.55-1.3); SGPT/ALT 51 U/L (13-61)
[2024-01-25 11:50] LABS: SGOT/AST 27 U/L (15-37)
[2024-01-25 11:51] LABS: BILIRUBIN,TOTAL 0.7 mg/dL (0.2-1)
[2024-01-25 11:52] LABS: ALK PHOS 105 U/L (45-117)
[2024-01-25 11:55] LABS: ANION GAP 4 mmol/L (4-13); POTASSIUM 6.4 mmol/L (3.5-5.1)
[2024-02-04] MEDS: BENZOCAINE/MENTHOL (CHLORASEPTIC ) LOZENGE MM PRN (12:05)
[2024-02-06] MEDS: ACETAMINOPHEN 325 MG TABLET (FP) PO PRN (06:19)
[2024-02-06] MEDS: AMOXICILLIN 500 MG CAPSULE (FP) PO ONE (13:20)
[2024-02-06] MEDS: AMOXICILLIN 500 MG CAPSULE (FP) PO SCH (21:02)
[2024-02-08 06:37] VITALS: TEMP 97.1
[2024-02-08 10:47] VITALS: BP 100/72; PULSE 102; RESP 15
== END 2024-02-08 09:35 | disposition home or self-care (01) | DRG 772 ==
LOC: YASAS 22:46 → Y3NR 01-23 04:01 → Y3E 01-24 10:59
PROVIDERS: ADMIT Allergy & Immunology; ATTEND Psychiatry & Neurology Pain Medicine
PROC: HZ42ZZZ Group Counseling for Substance Abuse Treatment, Cognitive-Behavioral (ICD-10-PCS; principal; 2024-01-23)
DX: F10.20 Alcohol dependence, uncomplicated (principal); I10 Essential (primary) hypertension; K21.9 Gastro-esophageal reflux disease without esophagitis; R56.9 Unspecified convulsions; Z86.711 Personal history of pulmonary embolism; Z79.01 Long term (current) use of anticoagulants; Z56.0 Unemployment, unspecified; Z59.00 Homelessness unspecified
CPT/HCPCS: 36415; 80053; 80305; 80307; 84132; 85027; 86780; 87070; 87811; 93005; 93010

== ENCOUNTER 2024-03-23 00:46 | Inpatient (IN) | payer OTHER ==
[2024-03-23 01:28] VITALS: BMI 29.7
[2024-03-23] MEDS ORDERED: LOPERAMIDE HCL 2 MG CAPSULE PO PRN (02:00)
[2024-03-23] MEDS ORDERED: MAG HYDROX/AL HYDROX/SIMETH 30 ML UNIT-DOSE CUP PO PRN (02:00)
[2024-03-23] MEDS ORDERED: POLYETHYLENE GLYCOL (HEALTHYLAX) 3350 17 GM PACKET PO PRN (02:00)
[2024-03-23] MEDS ORDERED: ACETAMINOPHEN 325 MG TABLET (FP) PO PRN (02:00)
[2024-03-23] MEDS ORDERED: IBUPROFEN 600 MG TABLET (FP) PO PRN (02:00)
[2024-03-23] MEDS ORDERED: NALOXONE HCL 0.4 MG/ML VIAL IM PRN (02:00)
[2024-03-23] MEDS ORDERED: BENZONATATE 200 MG CAPSULE PO PRN (02:00)
[2024-03-23] MEDS ORDERED: NALOXONE (NARCAN) HCL 4 MG/0.1 ML SPRAY NS PRN (02:00)
[2024-03-23] MEDS ORDERED: BISMUTH SUBSALICYLATE 524 MG/30 ML PO PRN (02:00)
[2024-03-23] MEDS ORDERED: IBUPROFEN 400 MG TABLET (FP) PO PRN (02:00)
[2024-03-23] MEDS ORDERED: DICYCLOMINE HCL 10 MG CAPSULE PO PRN (02:00)
[2024-03-23] MEDS ORDERED: BENZOCAINE/MENTHOL (CHLORASEPTIC ) LOZENGE MM PRN (02:00)
[2024-03-23] MEDS ORDERED: MAGNESIUM HYDROX 2400MG/30ML ORAL SUSPENSION 30 ML CUP PO PRN (02:00)
[2024-03-23] MEDS ORDERED: guaiFENesin 600 MG TABLET.ER (FP) PO PRN (02:00)
[2024-03-23] MEDS: hydrOXYzine PAMOATE 25 MG CAPSULE (FP) PO PRN (02:16)
[2024-03-23] MEDS ORDERED: chlordiazePOXIDE HCL 25 MG CAPSULE PO PRN (10:00)
[2024-03-23] MEDS: PRENATAL VITAMINS W/ FOLIC ACID TABLET (FP) PO SCH (10:19)
[2024-03-23] MEDS: chlordiazePOXIDE HCL 25 MG CAPSULE PO SCH (10:31)
[2024-03-23] MEDS: PANTOPRAZOLE 40 MG TABLET PO SCH (12:35)
[2024-03-23] MEDS: APIXABAN 5 MG TABLET PO SCH (12:35)
[2024-03-23] MEDS: LISINOPRIL 10 MG TABLET PO SCH (12:35)
[2024-03-23] MEDS: levETIRAcetam XR 750 MG TAB PO SCH (14:07)
[2024-03-23] MEDS: ONDANSETRON *ODT* 4 MG TABLET SL PRN (17:30)
[2024-03-23] MEDS: MELATONIN 5 MG TABLETS PO SCH (22:03)
[2024-03-23] MEDS: THIAMINE 100 MG TABLET PO SCH (22:03)
[2024-03-23] MEDS: METHOCARBAMOL 500 MG TABLET PO PRN (22:05)
[2024-03-25] MEDS: chlordiazePOXIDE HCL 25 MG CAPSULE PO SCH (05:38)
[2024-03-26] MEDS ORDERED: chlordiazePOXIDE HCL 10 MG CAPSULE PO PRN
[2024-03-26] MEDS: chlordiazePOXIDE HCL 10 MG CAPSULE PO SCH (05:35)
[2024-03-27] MEDS: chlordiazePOXIDE HCL 10 MG CAPSULE PO SCH (05:44)
[2024-03-27] MEDS: LISINOPRIL 5 MG TABLET PO ONE (21:46)
[2024-03-28] MEDS: chlordiazePOXIDE HCL 10 MG CAPSULE PO ONE (05:33)
[2024-03-28 05:43] VITALS: TEMP 97.3
[2024-03-28 09:06] VITALS: BP 138/89; PULSE 73; RESP 19
[2024-03-28] MEDS ORDERED: APIXABAN 5 MG TABLET PO SCH (10:00)
[2024-03-28] MEDS ORDERED: LISINOPRIL 5 MG TABLET PO SCH (10:00)
[2024-03-28] MEDS ORDERED: levETIRAcetam XR 750 MG TAB PO SCH (10:00)
== END 2024-03-28 10:13 | disposition home or self-care (01) | DRG 775 ==
LOC: YASAS 00:46 → Y3N 02:16
PROVIDERS: ADMIT Surgery; ATTEND Surgery
PROC: HZ2ZZZZ Detoxification Services for Substance Abuse Treatment (ICD-10-PCS; principal; 2024-03-23)
DX: F10.230 Alcohol dependence with withdrawal, uncomplicated (principal); I10 Essential (primary) hypertension; K21.9 Gastro-esophageal reflux disease without esophagitis; Z86.711 Personal history of pulmonary embolism; Z79.01 Long term (current) use of anticoagulants; Z86.69 Personal history of other diseases of the nervous system and sense organs; Z56.0 Unemployment, unspecified; Z59.00 Homelessness unspecified
CPT/HCPCS: 80305; 93005; 93010; Q0162

== ENCOUNTER 2024-04-27 10:42 | Inpatient (IN) | payer OTHER ==
[2024-04-27 11:24] VITALS: BMI 28.2
[2024-04-27] MEDS ORDERED: chlordiazePOXIDE HCL 25 MG CAPSULE PO PRN (12:20)
[2024-04-27] MEDS ORDERED: IBUPROFEN 400 MG TABLET (FP) PO PRN (12:20)
[2024-04-27] MEDS ORDERED: BISMUTH SUBSALICYLATE 524 MG/30 ML PO PRN (12:20)
[2024-04-27] MEDS ORDERED: POLYETHYLENE GLYCOL (HEALTHYLAX) 3350 17 GM PACKET PO PRN (12:20)
[2024-04-27] MEDS ORDERED: MAGNESIUM HYDROX 2400MG/30ML ORAL SUSPENSION 30 ML CUP PO PRN (12:20)
[2024-04-27] MEDS ORDERED: ONDANSETRON *ODT* 4 MG TABLET SL PRN (12:20)
[2024-04-27] MEDS ORDERED: guaiFENesin 600 MG TABLET.ER (FP) PO PRN (12:20)
[2024-04-27] MEDS ORDERED: NALOXONE HCL 0.4 MG/ML VIAL IM PRN (12:20)
[2024-04-27] MEDS ORDERED: LOPERAMIDE HCL 2 MG CAPSULE PO PRN (12:20)
[2024-04-27] MEDS ORDERED: MAG HYDROX/AL HYDROX/SIMETH 30 ML UNIT-DOSE CUP PO PRN (12:20)
[2024-04-27] MEDS ORDERED: NALOXONE (NARCAN) HCL 4 MG/0.1 ML SPRAY NS PRN (12:20)
[2024-04-27] MEDS ORDERED: DICYCLOMINE HCL 10 MG CAPSULE PO PRN (12:20)
[2024-04-27] MEDS ORDERED: ACETAMINOPHEN 325 MG TABLET (FP) PO PRN (12:20)
[2024-04-27] MEDS ORDERED: BENZOCAINE/MENTHOL (CHLORASEPTIC ) LOZENGE MM PRN (12:20)
[2024-04-27] MEDS ORDERED: BENZONATATE 200 MG CAPSULE PO PRN (12:20)
[2024-04-27] MEDS ORDERED: IBUPROFEN 600 MG TABLET (FP) PO PRN (12:20)
[2024-04-27] MEDS: NICOTINE 7 MG/24 HOURS TOPICAL PATCH TD SCH (13:06)
[2024-04-27] MEDS: PANTOPRAZOLE 40 MG TABLET PO SCH (13:06)
[2024-04-27] MEDS: levETIRAcetam XR 750 MG TAB PO SCH (13:07)
[2024-04-27] MEDS ORDERED: chlordiazePOXIDE HCL 25 MG CAPSULE ONE (13:20)
[2024-04-27] MEDS ORDERED: PRENATAL VITAMINS W/ FOLIC ACID TABLET (FP) PO ONE (13:20)
[2024-04-27] MEDS: chlordiazePOXIDE HCL 25 MG CAPSULE PO ONE (13:21)
[2024-04-27] MEDS: PRENATAL VITAMINS W/ FOLIC ACID TABLET (FP) PO SCH (13:23)
[2024-04-27] MEDS: chlordiazePOXIDE HCL 25 MG CAPSULE PO SCH (17:23)
[2024-04-27] MEDS: THIAMINE 100 MG TABLET PO SCH (22:18)
[2024-04-27] MEDS: APIXABAN 5 MG TABLET PO SCH (22:19)
[2024-04-27] MEDS: MELATONIN 5 MG TABLETS PO SCH (22:19)
[2024-04-28] MEDS ORDERED: LISINOPRIL 5 MG TABLET PO SCH (10:00)
[2024-04-28] MEDS: LISINOPRIL 10 MG TABLET PO SCH (10:28)
[2024-04-28 11:23] LABS: CHLORIDE 100 mmol/L (98-107); POTASSIUM 4.1 mmol/L (3.5-5.1); SODIUM 136 mmol/L (136-145)
[2024-04-28 11:27] LABS: HEMATOCRIT 46.2 % (35.4-49); HEMOGLOBIN 15.4 GM/dL (11.7-16.9); MCH 34.2 pg (25.7-33.7); MCHC 33.4 g/dl (32.0-35.9); MEAN CELL VOLUME 102.3 fl (80-96); MEAN PLT VOLUME 10.3 fl (7.5-11.1); PLATELET COUNT 315 10^3/uL (134-434); RBC 4.52 M/mm3 (4.00-5.60); WHITE BLOOD COUNT 5.6 K/mm3 (4.0-10.0)
[2024-04-28 11:35] LABS: ALBUMIN 4.2 g/dl (3.4-5.0); BLOOD UREA NITROGEN 10.1 mg/dL (7-18); CALCIUM 10.1 mg/dL (8.5-10.1)
[2024-04-28 11:37] LABS: ANION GAP 10 mmol/L (4-13); CO2 26 mmol/L (21-32); GLUCOSE,RANDOM 90 mg/dL (74-106)
[2024-04-28 11:38] LABS: SGPT/ALT 113 U/L (13-61)
[2024-04-28 11:39] LABS: BILIRUBIN,TOTAL 0.8 mg/dL (0.2-1); SGOT/AST 70 U/L (15-37)
[2024-04-28 11:41] LABS: ALK PHOS 167 U/L (45-117)
[2024-04-29] MEDS: chlordiazePOXIDE HCL 25 MG CAPSULE PO SCH (05:54)
[2024-04-29] MEDS: METHOCARBAMOL 500 MG TABLET PO PRN (22:13)
[2024-04-30] MEDS ORDERED: chlordiazePOXIDE HCL 10 MG CAPSULE PO PRN
[2024-04-30] MEDS: chlordiazePOXIDE HCL 10 MG CAPSULE PO SCH (05:44)
[2024-05-01] MEDS: chlordiazePOXIDE HCL 10 MG CAPSULE PO SCH (05:45)
[2024-05-01] MEDS: hydrOXYzine PAMOATE 25 MG CAPSULE (FP) PO PRN (16:57)
[2024-05-02] MEDS: chlordiazePOXIDE HCL 10 MG CAPSULE PO ONE (05:23)
[2024-05-02 06:14] VITALS: TEMP 97.5
[2024-05-02 09:17] VITALS: BP 139/90; PULSE 66; RESP 18
== END 2024-05-02 11:00 | disposition home or self-care (01) | DRG 775 ==
LOC: YASAS 10:42 → Y6N 12:30
PROVIDERS: ADMIT Allergy & Immunology; ATTEND Surgery
PROC: HZ2ZZZZ Detoxification Services for Substance Abuse Treatment (ICD-10-PCS; principal; 2024-04-27)
DX: F10.230 Alcohol dependence with withdrawal, uncomplicated (principal); F10.282 Alcohol dependence with alcohol-induced sleep disorder; I10 Essential (primary) hypertension; K21.9 Gastro-esophageal reflux disease without esophagitis; Z86.711 Personal history of pulmonary embolism; Z86.69 Personal history of other diseases of the nervous system and sense organs; Z79.01 Long term (current) use of anticoagulants; Z56.0 Unemployment, unspecified; Z59.00 Homelessness unspecified
CPT/HCPCS: 36415; 80053; 80305; 80307; 85027; 86780; 93005; 93010

== ENCOUNTER 2024-11-14 11:51 | Inpatient (IN) | payer OTHER ==
[2024-11-14 12:22] VITALS: BMI 35.3
[2024-11-14] MEDS ORDERED: chlordiazePOXIDE HCL 25 MG CAPSULE PO PRN (12:39)
[2024-11-14] MEDS ORDERED: PATIENT'S OWN MEDICATION (NON-FORMULARY) (Famotidine 40 MG Tablet) PO SCH (12:45)
[2024-11-14] MEDS ORDERED: POLYETHYLENE GLYCOL (HEALTHYLAX) 3350 17 GM PACKET PO PRN (12:51)
[2024-11-14] MEDS ORDERED: guaiFENesin 600 MG TABLET.ER (FP) PO PRN (12:51)
[2024-11-14] MEDS ORDERED: ACETAMINOPHEN 325 MG TABLET (FP) PO PRN (12:51)
[2024-11-14] MEDS ORDERED: BENZOCAINE/MENTHOL (CHLORASEPTIC ) LOZENGE MM PRN (12:51)
[2024-11-14] MEDS ORDERED: MAGNESIUM HYDROX 2400MG/30ML ORAL SUSPENSION 30 ML CUP PO PRN (12:51)
[2024-11-14] MEDS ORDERED: BENZONATATE 200 MG CAPSULE PO PRN (12:51)
[2024-11-14] MEDS ORDERED: ONDANSETRON *ODT* 4 MG TABLET SL PRN (12:51)
[2024-11-14] MEDS ORDERED: LOPERAMIDE HCL 2 MG CAPSULE PO PRN (12:51)
[2024-11-14] MEDS ORDERED: NALOXONE (NARCAN) HCL 4 MG/0.1 ML SPRAY NS PRN (12:51)
[2024-11-14] MEDS ORDERED: DICYCLOMINE HCL 10 MG CAPSULE PO PRN (12:51)
[2024-11-14] MEDS ORDERED: MAG HYDROX/AL HYDROX/SIMETH 30 ML UNIT-DOSE CUP PO PRN (12:51)
[2024-11-14] MEDS ORDERED: chlordiazePOXIDE HCL 25 MG CAPSULE ONE (12:57)
[2024-11-14] MEDS: chlordiazePOXIDE HCL 25 MG CAPSULE PO ONE (12:59)
[2024-11-14] MEDS: APIXABAN 5 MG TABLET PO SCH (14:05)
[2024-11-14] MEDS: FAMOTIDINE 20 MG TABLET PO SCH (14:05)
[2024-11-14] MEDS: levETIRAcetam XR 750 MG TAB PO SCH (14:07)
[2024-11-14] MEDS: chlordiazePOXIDE HCL 25 MG CAPSULE PO SCH (17:25)
[2024-11-14] MEDS: MELATONIN 5 MG TABLETS PO SCH (22:16)
[2024-11-14] MEDS: THIAMINE 100 MG TABLET PO SCH (22:16)
[2024-11-15] MEDS: LISINOPRIL 10 MG TABLET PO SCH (10:06)
[2024-11-15] MEDS: METHOCARBAMOL 500 MG TABLET PO PRN (10:06)
[2024-11-15] MEDS: PRENATAL VITAMINS W/ FOLIC ACID TABLET (FP) PO SCH (10:06)
[2024-11-15 12:23] LABS: HEMATOCRIT 42.5 % (35.4-49); HEMOGLOBIN 14.4 GM/dL (11.7-16.9); MCH 31.4 pg (25.7-33.7); MCHC 33.8 g/dl (32.0-35.9); MEAN CELL VOLUME 92.9 fl (80-96); MEAN PLT VOLUME 10.4 fl (7.5-11.1); PLATELET COUNT 167 10^3/uL (134-434); RBC 4.58 M/mm3 (4.00-5.60); RDW 13.2 % (11.9-15.9); WHITE BLOOD COUNT 5.3 K/mm3 (4.0-10.0)
[2024-11-15 12:33] LABS: POTASSIUM 3.3 mmol/L (3.5-5.1)
[2024-11-15 12:47] LABS: ALBUMIN 3.9 g/dl (3.4-5.0); BLOOD UREA NITROGEN 8.5 mg/dL (7-18); CALCIUM 9.5 mg/dL (8.5-10.1)
[2024-11-15 12:51] LABS: CREATININE 1.1 mg/dL (0.55-1.3)
[2024-11-15 12:52] LABS: BILIRUBIN,TOTAL 1.6 mg/dL (0.2-1); TOT PROT 7.3 g/dl (6.4-8.2)
[2024-11-16] MEDS: chlordiazePOXIDE HCL 25 MG CAPSULE PO SCH (06:00)
[2024-11-16] MEDS: POTASSIUM CHLORIDE ORAL LIQUID 20 MEQ/15 ML PO ONE (10:21)
[2024-11-16] MEDS: amLODIPine BESYLATE 5 MG TABLET (FP) PO ONE (15:10)
[2024-11-16 21:34] VITALS: RESP 18
[2024-11-17] MEDS ORDERED: chlordiazePOXIDE HCL 10 MG CAPSULE PO PRN
[2024-11-17] MEDS: chlordiazePOXIDE HCL 10 MG CAPSULE PO SCH (05:44)
[2024-11-17] MEDS: POTASSIUM CHLORIDE ORAL LIQUID 20 MEQ/15 ML PO ONE (10:13)
[2024-11-17 12:46] VITALS: BP 146/91; PULSE 88; TEMP 97.6
[2024-11-18] MEDS ORDERED: chlordiazePOXIDE HCL 10 MG CAPSULE PO SCH (05:00)
[2024-11-19] MEDS ORDERED: chlordiazePOXIDE HCL 10 MG CAPSULE PO ONE (05:00)
== END 2024-11-17 15:00 | disposition left against medical advice (07) | DRG 770 ==
LOC: YASAS 11:51 → Y6N 13:00
PROVIDERS: ADMIT Allergy & Immunology; ATTEND Allergy & Immunology
PROC: HZ2ZZZZ Detoxification Services for Substance Abuse Treatment (ICD-10-PCS; principal; 2024-11-14)
DX: F10.230 Alcohol dependence with withdrawal, uncomplicated (principal); F17.210 Nicotine dependence, cigarettes, uncomplicated; E87.6 Hypokalemia; I10 Essential (primary) hypertension; K21.9 Gastro-esophageal reflux disease without esophagitis; G40.89 Other seizures; Z86.69 Personal history of other diseases of the nervous system and sense organs; Z86.711 Personal history of pulmonary embolism; Z79.01 Long term (current) use of anticoagulants
CPT/HCPCS: 36415; 80053; 80305; 80307; 85027; 86780; 93005; 93010

== ENCOUNTER 2025-01-02 21:17 | Inpatient (IN) | payer OTHER ==
[2025-01-02] MEDS ORDERED: chlordiazePOXIDE HCL 25 MG CAPSULE PO PRN (22:44)
[2025-01-02] MEDS ORDERED: DICYCLOMINE HCL 10 MG CAPSULE PO PRN (22:57)
[2025-01-02] MEDS ORDERED: hydrOXYzine PAMOATE 25 MG CAPSULE (FP) PO PRN (22:57)
[2025-01-02] MEDS ORDERED: LOPERAMIDE HCL 2 MG CAPSULE PO PRN (22:57)
[2025-01-02] MEDS ORDERED: guaiFENesin 600 MG TABLET.ER (FP) PO PRN (22:57)
[2025-01-02] MEDS ORDERED: ACETAMINOPHEN 325 MG TABLET (FP) PO PRN (22:57)
[2025-01-02] MEDS ORDERED: IBUPROFEN 600 MG TABLET (FP) PO PRN (22:57)
[2025-01-02] MEDS ORDERED: MAGNESIUM HYDROX 2400MG/30ML ORAL SUSPENSION 30 ML CUP PO PRN (22:57)
[2025-01-02] MEDS ORDERED: BISMUTH SUBSALICYLATE 524 MG/30 ML PO PRN (22:57)
[2025-01-02] MEDS ORDERED: BENZONATATE 200 MG CAPSULE PO PRN (22:57)
[2025-01-02] MEDS ORDERED: POLYETHYLENE GLYCOL (HEALTHYLAX) 3350 17 GM PACKET PO PRN (22:57)
[2025-01-02] MEDS ORDERED: MAG HYDROX/AL HYDROX/SIMETH 30 ML UNIT-DOSE CUP PO PRN (22:57)
[2025-01-02] MEDS ORDERED: IBUPROFEN 400 MG TABLET (FP) PO PRN (22:57)
[2025-01-02] MEDS ORDERED: BENZOCAINE/MENTHOL (CHLORASEPTIC ) LOZENGE MM PRN (22:57)
[2025-01-02] MEDS ORDERED: METHOCARBAMOL 500 MG TABLET PO PRN (22:57)
[2025-01-02] MEDS ORDERED: ONDANSETRON *ODT* 4 MG TABLET SL PRN (22:57)
[2025-01-02] MEDS ORDERED: NALOXONE (NARCAN) HCL 4 MG/0.1 ML SPRAY NS PRN (22:57)
[2025-01-02] MEDS ORDERED: chlordiazePOXIDE HCL 25 MG CAPSULE ONE (23:40)
[2025-01-02] MEDS ORDERED: METOPROLOL TARTRATE 25 MG TABLET (FP) ONE (23:40)
[2025-01-02] MEDS ORDERED: levETIRAcetam 500 MG TABLET (FP) PO ONE (23:42)
[2025-01-02] MEDS: levETIRAcetam XR 750 MG TAB PO SCH (23:43)
[2025-01-02] MEDS: chlordiazePOXIDE HCL 25 MG CAPSULE PO SCH (23:43)
[2025-01-02] MEDS: THIAMINE 100 MG TABLET PO ONE (23:43)
[2025-01-02] MEDS: METOPROLOL TARTRATE 50 MG TABLET (FP) PO ONE (23:44)
[2025-01-03 09:17] VITALS: BP 133/97; PULSE 90; RESP 18; TEMP 97.6
[2025-01-03] MEDS ORDERED: FAMOTIDINE 40 MG TABLET PO SCH (10:00)
[2025-01-03] MEDS: APIXABAN 5 MG TABLET PO SCH (10:11)
[2025-01-03] MEDS: FAMOTIDINE 20 MG TABLET PO SCH (10:11)
[2025-01-03] MEDS: PRENATAL VITAMINS W/ FOLIC ACID TABLET (FP) PO SCH (10:11)
[2025-01-03 11:09] LABS: HEMOGLOBIN 12.7 g/dL (13.7-17.5); MCHC 32.6 g/dl (32.3-36.5); MEAN CELL VOLUME 102.4 fl (79.0-92.2); MEAN PLT VOLUME 11.4 fl (9.4-12.4); PLATELET COUNT 160 x10^3/uL (163-337); RDW 13.9 % (12.0-15.6)
[2025-01-03 11:28] LABS: POTASSIUM 3.4 mmol/L (3.5-5.1)
[2025-01-03 11:36] LABS: ALBUMIN 3.5 g/dl (3.4-5.0); BLOOD UREA NITROGEN 8.9 mg/dL (7-18); CALCIUM 8.8 mg/dL (8.5-10.1)
[2025-01-03 11:38] LABS: BILIRUBIN,TOTAL 0.7 mg/dL (0.2-1); TOT PROT 6.4 g/dl (6.4-8.2)
[2025-01-03] MEDS ORDERED: THIAMINE 100 MG TABLET PO SCH (22:00)
[2025-01-03] MEDS ORDERED: MELATONIN 5 MG TABLETS PO SCH (22:00)
[2025-01-04] MEDS ORDERED: chlordiazePOXIDE HCL 25 MG CAPSULE PO SCH (05:00)
[2025-01-05] MEDS ORDERED: chlordiazePOXIDE HCL 10 MG CAPSULE PO PRN
[2025-01-05] MEDS ORDERED: chlordiazePOXIDE HCL 10 MG CAPSULE PO SCH (05:00)
[2025-01-06] MEDS ORDERED: chlordiazePOXIDE HCL 10 MG CAPSULE PO SCH (05:00)
[2025-01-07] MEDS ORDERED: chlordiazePOXIDE HCL 10 MG CAPSULE PO ONE (05:00)
== END 2025-01-03 11:30 | disposition home or self-care (01) | DRG 775 ==
LOC: YASAS 21:17 → Y6N 23:51
PROVIDERS: ADMIT Allergy & Immunology; ATTEND Allergy & Immunology
PROC: HZ2ZZZZ Detoxification Services for Substance Abuse Treatment (ICD-10-PCS; principal; 2025-01-02)
DX: F10.230 Alcohol dependence with withdrawal, uncomplicated (principal); F17.210 Nicotine dependence, cigarettes, uncomplicated; D70.9 Neutropenia, unspecified; E87.6 Hypokalemia; K21.9 Gastro-esophageal reflux disease without esophagitis; R56.9 Unspecified convulsions; R74.01 Elevation of levels of liver transaminase levels; Z86.711 Personal history of pulmonary embolism; Z79.01 Long term (current) use of anticoagulants
CPT/HCPCS: 36415; 80053; 80305; 85027